=== PATIENT | male | born 1960 | race Caucasian/White ===

== ENCOUNTER 2016-08-15 09:41 | Outpatient (CLI) | payer OTHER ==
--- NOTE | 2016-08-15 21:33 | RAD ---
LUMBAR SPINE THREE VIEWS 08/15/16 No acute fracture was seen, however, there does appear to be an old injury to the anterior superior corner of the L3 vertebral body. The disc spaces are normal in height. The visible lower thoracic ve rtebrae appeared intact. The SI joints appear normal. A spina bifida occulta defect of S1 was noted. The aorta and iliac arteries are calcified. IMPRESSION: Old L3 injury. No acute findings. Given the clinical symptoms, MRI could be helpful in looking for n eural impingement from discs. POS: HOME
== END 2016-08-15 09:42 | disposition home or self-care (01) ==
LOC: BURRAD 09:41
PROVIDERS: ATTEND Family Medicine
DX: M54.30 Sciatica, unspecified side (principal)
CPT/HCPCS: 72100

== ENCOUNTER 2016-09-07 13:31 | Outpatient (CLI) | payer OTHER ==
--- NOTE | 2016-09-07 16:37 | MRI ---
MRI LUMBAR SPINE WITHOUT CONTRAST: Multiplanar, multisequential imaging of the lumbar spine obtained according to protocol. HISTORY: Low back pain. Sciatica. FINDINGS: Lumbar vertebrae maintain height and alignment. There is a corticated osseous fragment adjacent to the anterior superior corner of the L3 vertebrae consistent with a limbus vertebra. There is a superior end plate deformity involving the superior e nd plate of L5 consistent with a Schmorl node. Mild degenerative spurring from all lumbar vertebrae . The disk spaces are preserved. There are mild degenerative disk signal changes throughout. No d isk bulge or protrusion seen at T12-L1, L1-2, or L2-3 levels. Mild facet arthrosis; however, no kristan tral canal or foraminal stenosis. At L3-4, there is significant disk bulge and protrusion. Moderate facet and ligamentous arthrosis a nd hypertrophy; however, no significant central canal or foraminal stenosis. At L4-5, mild diffuse disk bulge flattens the anterior thecal sac. Mild to moderate facet hypertrop hy. Very mild central canal stenosis. There is mild foraminal encroachment bilaterally due to the disk bulge and hypertrophic change. There is asymmetric enlargement of the exiting right L4 nerve root within the foramina. This is kevin ecially noticeable on the sagittal images as this nerve root takes up the entire foramina. The T1 a nd T2 signal is isointense. At L5-S1, there is evidence of a small annular tear with asymmetric bulge paracentrally to the right . No protrusion is seen. No central canal or foraminal stenosis. IMPRESSION: 1. At L4-5, there is asymmetrically enlarged L4 nerve root on the right as it exits the foramina. Since the nerve sheath tumor cannot be excluded from this exam, recommend a contrasted study to furt her evaluate this nerve root. This may be an enlargement due to focal inflammation from impingement ; however, a postcontrast scan is recommended for further evaluation. 2. Mild central canal stenosis at L4-5 as described above. 3. Small annular tear with mild asymmetric bulge to the right at L5-S1. 4. Limbus vertebra at L3. Schmorl node involving superior end plate of L5. POS: [facility]
== END 2016-09-07 13:32 | disposition home or self-care (01) ==
LOC: BURMRI 13:31
PROVIDERS: ATTEND Family Medicine
DX: M54.40 Lumbago with sciatica, unspecified side (principal); M48.06 Spinal stenosis, lumbar region
CPT/HCPCS: 72148

== ENCOUNTER 2016-10-17 07:37 | Emergency (ER) | payer OTHER ==
[2016-10-17] MEDS ORDERED: Ketorolac Tromethamine 30 MG/ML VIAL ONE (07:53)
[2016-10-17] MEDS ORDERED: Ondansetron HCl/PF 4 MG/2 ML Vial ONE (07:53)
[2016-10-17 08:05] LABS: #Basophils 0.1 thou/uL (0.0-0.2); #Eosinphils 0.1 thou/uL (0.0-0.7); #Lymphocytes 2.4 thou/uL (1.20-3.40); #Monocytes 1.2 thou/uL (0.11-0.59); #Neutrophils 9.2 thou/uL (1.40-6.50); %Basophils 0.6 % (0.0-1.0); %Eosinophils 0.7 % (0.0-10.0); %Monocytes 9.1 % (0.0-10.0); Hematocrit 52.9 % (42.0-52.0); Mean Platelet Volume 7.3 fL (7.4-10.4); Red Blood Cell (RBC) Count 5.68 mill/uL (4.70-6.10)
[2016-10-17 08:14] LABS: Bilirubin Negative (Negative); Blood, Urine Moderate (Negative); Glucose, Urine (Dipstick) Negative (Negative); Ketone, Urine Negative (Negative); Nitrite Negative (Negative); Protein, Urine (Dipstick) 100 mg/dL (Neg-Trace); Urobilinogen 0.2 mg/dL (0.2-1.0)
[2016-10-17 08:18] LABS: Bacteria/HPF Rare-Few HPF (None Seen); RBC/HPF GREATER THAN 50-TNTC HPF (0-3); Squamous Epithelial 0-3 HPF (0-3); WBC/HPF 0-3 HPF (0-3)
[2016-10-17 08:19] LABS: ALT (SGPT) 24 U/L (0-55); AST (SGOT) 14 U/L (5-34); Alkaline Phosphatase 111 U/L (40-150); Anion Gap 18 mmol/L (10-20); BUN (Urea Nitrogen) 20 mg/dL (8.4-25.7); Bilirubin, Total 0.9 mg/dL (0.2-1.2); Calc. Creatinine Clearance 0 mL/min (70-130); Calcium 10.2 mg/dL (7.8-10.44); Carbon Dioxide 23 mmol/L (22-29); Chloride 101 mmol/L (98-107); Estimated GFR-MDRD 65; Globulin 3.4 g/dL (2.4-3.5)
--- NOTE | 2016-10-17 16:49 | CT ---
CT OF THE ABDOMEN AND PELVIS WITHOUT CONTRAST: Date: 10-17-[address] was done for severe right flank pain. Axial slices were acquired and then coronal reconstructions were done. FINDINGS: A large 9 x 5 mm distal right ureteral calculus is seen just above the right UVJ. It is causing mod erate right hydronephrosis. Additionally, there is a 5 mm distal left ureteral calculus near the le ft UVJ, but it is causing minimal obstruction. Small bilateral renal calculi are seen. There is a vague lucency in the lower pole of the right kidney that could be a cyst, but an ultrasound would be needed to be certain. The lung bases are clear. The liver, spleen, pancreas, adrenal glands and abdominal aorta showed no acute findings within the limitations of a noncontrast study. No calcifications were seen in the g allbladder, but an ultrasound would be needed to completely clear stones. There is a large calcific ation seen in small bowel of uncertain etiology, but it is probably not significant. There is no bowel dilatation, inflammatory change around bowel, free air or free fluid. No bowel wa ll thickening was seen. CT of the pelvis shows no pelvic masses, fluid collections, or inflammatory changes. IMPRESSION: 1. 9 x 5 mm distal right ureteral calculus causing moderate right hydronephrosis. 2. 5 mm distal left ureteral calculus near the UVJ with minimal obstruction. 3. Bilateral nonobstructing renal calculi. POS: HOME
== END 2016-10-17 09:11 | disposition home or self-care (01) ==
LOC: BURERS 07:37
DX: N13.2 Hydronephrosis with renal and ureteral calculous obstruction (principal); G43.909 Migraine, unspecified, not intractable, without status migrainosus; E11.9 Type 2 diabetes mellitus without complications; E78.5 Hyperlipidemia, unspecified; E78.00 Pure hypercholesterolemia, unspecified; I10 Essential (primary) hypertension; F17.210 Nicotine dependence, cigarettes, uncomplicated
CPT/HCPCS: 36415; 74176; 80053; 81003; 81015; 85025; 87086; 96361; 96374; 96375; 96376; J1885; J2270; J2405

== ENCOUNTER 2017-03-16 17:56 | Emergency (ER) | payer OTHER, SELFPAY ==
[2017-03-16] MEDS ORDERED: Ketorolac Tromethamine 30 MG/ML VIAL ONE (18:00)
[2017-03-16] MEDS ORDERED: Fentanyl 100 MCG/2 ML VIAL ONE ×2 (18:04→18:39)
[2017-03-16 18:54] LABS: #Basophils 0.1 thou/uL (0.0-0.2); #Eosinphils 0.1 thou/uL (0.0-0.7); #Lymphocytes 2.2 thou/uL (1.20-3.40); #Monocytes 0.9 thou/uL (0.11-0.59); #Neutrophils 8.1 thou/uL (1.40-6.50); %Basophils 0.9 % (0.0-1.0); %Eosinophils 1.1 % (0.0-10.0); %Lymphocytes 18.9 % (21.0-51.0); %Monocytes 8.2 % (0.0-10.0); Hemoglobin 16.4 g/dL (14.0-18.0); Mean Corpuscular HGB CONC 33.8 g/dL (32.0-36.0); Mean Corpuscular Hemoglobin 31.2 pg (27.0-31.0); Mean Corpuscular Volume 92.3 fl (80.0-94.0); Mean Platelet Volume 7.8 fL (7.4-10.4); Platelet Count 227 thou/uL (130-400); RBC Distribution Width 12.6 % (11.5-14.5); Red Blood Cell (RBC) Count 5.27 mill/uL (4.70-6.10); White Blood Cell (WBC) Count 11.4 thou/uL (4.8-10.8)
[2017-03-16 19:01] LABS: Blood, Urine Large (Negative); Clarity Cloudy (Clear); Glucose, Urine (Dipstick) Negative (Negative); Leukocyte Negative (Negative); Nitrite Negative (Negative); Protein, Urine (Dipstick) 100 mg/dL (Neg-Trace); Urobilinogen 0.2 mg/dL (0.2-1.0); pH, Urine 5.5 (5.0-9.0)
[2017-03-16 19:02] LABS: Specific Gravity, Urine 1.024 (1.002-1.036)
[2017-03-16 19:03] LABS: Bilirubin Negative (Negative)
[2017-03-16 19:06] LABS: ALT (SGPT) 31 U/L (8-55); AST (SGOT) 13 U/L (5-34); Albumin 4.2 g/dL (3.5-5.0); Alkaline Phosphatase 85 U/L (40-150); Anion Gap 16 mmol/L (10-20); BUN (Urea Nitrogen) 21 mg/dL (8.4-25.7); Bilirubin, Total 0.3 mg/dL (0.2-1.2); Calc. Creatinine Clearance 0 mL/min (70-130); Calcium 9.7 mg/dL (7.8-10.44); Carbon Dioxide 22 mmol/L (22-29); Chloride 104 mmol/L (98-107); Estimated GFR-MDRD 76; Globulin 2.8 g/dL (2.4-3.5); Glucose 96 mg/dL (70-105); Potassium 3.5 mmol/L (3.5-5.1); Sodium 138 mmol/L (136-145)
[2017-03-16 19:14] LABS: Bacteria/HPF 1+ HPF (None Seen); Crystals/HPF 1+ CA OXALATE HPF (Negative); Hyaline Casts/LPF 0-3 HYALINE CAST LPF (0-3 Hyaline); Other Microscopic Description 1+ MUCUS; RBC/HPF GREATER THAN 50-TNTC HPF (0-3); Squamous Epithelial 0-3 HPF (0-3); WBC/HPF 0-3 HPF (0-3); Yeast-All Forms 1+ HPF (None Seen)
--- NOTE | 2017-03-16 20:58 | CT ---
CT ABDOMEN AND PELVIS WITHOUT CONTRAST 03/16/[address] of the abdomen and pelvis was performed without IV contrast for evaluation of flank pain. There is a history of renal calculi. A calculus is present in the right ureter at the S1 level that is causing mild to moderate right hyd ronephrosis and hydroureter. Nonobstructing stones are seen in each kidney, very tiny on the right b ut somewhat larger on the left. The largest one is in the lower pole of the left kidney and measures 8 to 9 mm in size. There is a subtle 1 cm lucency in the lower pole of the right kidney. This is mo st likely a small cyst. Ultrasound would be confirmatory. A look at an MRI of the lumbar spine done earlier this year and an see the lesion and its general signal characteristics follow what one might expect for a cyst. It would still be prudent to do an elective ultrasound at some point for complet e confirmation. The lung bases are clear. The liver, spleen, pancreas, gallbladder, adrenal glands, and abdominal ao rta showed no acute changes. There is some calcification in the aorta and iliac arteries. The bowel is nondistended and shows no inflammatory changes around it. No bowel wall thickening was seen. No free air or free fluid was evident. CT of the pelvis shows no pelvic masses, inflammatory changes or free fluid. IMPRESSION: 1. 4 to 5 mm distal right ureteral calculus at the S1 level causing moderate right hydroureter and hydronephrosis. 2. Nonobstructing bilateral renal calculi. The largest is in the left kidney. 3. Probable 1 cm cyst in the lower pole of the left kidney. Elective ultrasound recommended for confirmation. POS: HOME
== END 2017-03-16 19:46 | disposition home or self-care (01) ==
LOC: BURERS 17:56
DX: N13.2 Hydronephrosis with renal and ureteral calculous obstruction (principal); E11.9 Type 2 diabetes mellitus without complications; E78.5 Hyperlipidemia, unspecified; I10 Essential (primary) hypertension; F17.210 Nicotine dependence, cigarettes, uncomplicated; Z87.442 Personal history of urinary calculi; Z79.899 Other long term (current) drug therapy
CPT/HCPCS: 74176; 80053; 81003; 81015; 85025; 87086; 96374; 96375; 96376; J1885; J3010

== ENCOUNTER 2017-05-18 23:55 | Emergency (ER) | payer OTHER ==
[2017-05-19] MEDS ORDERED: Amoxicillin/Potassium Clav 875 MG TAB ONE (00:04)
== END 2017-05-19 00:14 | disposition home or self-care (01) ==
LOC: BURERS 23:55
DX: S61.551A Open bite of right wrist, initial encounter (principal); S61.451A Open bite of right hand, initial encounter; E11.9 Type 2 diabetes mellitus without complications; E78.5 Hyperlipidemia, unspecified; I10 Essential (primary) hypertension; G43.909 Migraine, unspecified, not intractable, without status migrainosus; F17.210 Nicotine dependence, cigarettes, uncomplicated; W54.0XXA Bitten by dog, initial encounter
CPT/HCPCS: 99283

== ENCOUNTER 2017-08-17 10:30 | Emergency (ER) | payer OTHER ==
[2017-08-17] MEDS ORDERED: Acetaminophen 500 MG TAB ONE (10:41)
[2017-08-17 11:08] LABS: #Basophils 0.2 thou/uL (0.0-0.2); #Lymphocytes 1.2 thou/uL (1.20-3.40); #Monocytes 1.4 thou/uL (0.11-0.59); #Neutrophils 8.3 thou/uL (1.40-6.50); %Basophils 1.7 % (0.0-1.0); %Eosinophils 0.1 % (0.0-10.0); %Lymphocytes 10.7 % (21.0-51.0); %Monocytes 12.4 % (0.0-10.0); %Neutrophils 75.1 % (42.0-75.0); Hemoglobin 15.8 g/dL (14.0-18.0); Mean Corpuscular Hemoglobin 31.5 pg (27.0-31.0); Mean Platelet Volume 7.5 fL (7.4-10.4); Platelet Count 190 thou/uL (130-400); RBC Distribution Width 12.1 % (11.5-14.5)
[2017-08-17 11:09] LABS: ALT (SGPT) 28 U/L (8-55); AST (SGOT) 13 U/L (5-34); Albumin 4.1 g/dL (3.5-5.0); Alkaline Phosphatase 94 U/L (40-150); Anion Gap 16 mmol/L (10-20); BUN (Urea Nitrogen) 18 mg/dL (8.4-25.7); Bilirubin, Total 0.4 mg/dL (0.2-1.2); Calc. Creatinine Clearance 0 mL/min (70-130); Calcium 9.2 mg/dL (7.8-10.44); Carbon Dioxide 24 mmol/L (22-29); Chloride 98 mmol/L (98-107); Estimated GFR-MDRD 72; Globulin 3.1 g/dL (2.4-3.5); Glucose 114 mg/dL (70-105); Potassium 3.3 mmol/L (3.5-5.1); Protein, Total 7.2 g/dL (6.0-8.3); Sodium 135 mmol/L (136-145)
[2017-08-17] MEDS ORDERED: Benzonatate 100 MG CAP ONE (11:37)
[2017-08-17] MEDS ORDERED: Ketorolac Tromethamine 30 MG/ML VIAL ONE (11:37)
[2017-08-17] MEDS ORDERED: Azithromycin 250 MG TAB ONE (12:32)
--- NOTE | 2017-08-17 21:17 | RAD ---
CHEST TWO VIEWS 08/17/17 Comparison is made with the 01/11/10 study. There is no lobar consolidation, or effusion. There is a little increased streaking to the retrocardi ac markings, probably on the left. There might be a very minimal infiltrate here, but this is a reyna nal finding at best. The lungs are otherwise clear. the cardiac silhouette appears normal. Some calci fied nodes are seen in the dia. There is no congestive change. The trachea is midline. IMPRESSION: Equivocal left basilar retrocardiac streaking. POS: HOME
== END 2017-08-17 12:41 | disposition home or self-care (01) ==
LOC: BURERS 10:30
DX: J11.1 Influenza due to unidentified influenza virus with other respiratory manifestations (principal); E11.9 Type 2 diabetes mellitus without complications; E78.5 Hyperlipidemia, unspecified; G43.909 Migraine, unspecified, not intractable, without status migrainosus; I10 Essential (primary) hypertension; F17.210 Nicotine dependence, cigarettes, uncomplicated; Z79.899 Other long term (current) drug therapy; Z79.84 Long term (current) use of oral hypoglycemic drugs
CPT/HCPCS: 71046; 80053; 85025; 87040; 94640; 96361; 96374; J1885; J7620

== ENCOUNTER 2018-11-24 12:20 | Emergency (ER) | payer OTHER ==
[2018-11-24] MEDS ORDERED: Ketorolac Tromethamine 60 MG/2 ML VIAL ONE (12:45)
== END 2018-11-24 12:55 | disposition home or self-care (01) ==
LOC: BURERS 12:20
DX: M62.838 Other muscle spasm (principal); E11.9 Type 2 diabetes mellitus without complications; E78.5 Hyperlipidemia, unspecified; I10 Essential (primary) hypertension; F17.210 Nicotine dependence, cigarettes, uncomplicated; Z79.899 Other long term (current) drug therapy; Z79.84 Long term (current) use of oral hypoglycemic drugs
CPT/HCPCS: 99283; J1885

== ENCOUNTER 2018-11-25 09:24 | Outpatient (CLI) | payer OTHER ==
--- NOTE | 2018-11-25 21:07 | RAD ---
RIGHT HIP TWO VIEWS: Date: 11-25-18 FINDINGS: No fracture, arthritic change, or joint space narrowing was seen. The articular surfaces are smooth. The adjacent pubic ring appears normal. IMPRESSION: No significant findings. POS: HOME
== END 2018-11-25 09:25 | disposition home or self-care (01) ==
LOC: BURRAD 09:24
PROVIDERS: ATTEND Physician Assistant
DX: M25.551 Pain in right hip (principal)

== ENCOUNTER 2021-06-05 03:36 | Emergency (ER) | payer BC ==
[2021-06-05 04:27] LABS: #Basophils 0.1 thou/uL (0.0-0.2); #Eosinphils 0.1 thou/uL (0.0-0.7); #Lymphocytes 1.6 thou/uL (1.20-3.40); #Monocytes 0.9 thou/uL (0.11-0.59); #Neutrophils 8.6 thou/uL (1.40-6.50); %Basophils 0.5 % (0.0-1.0); %Eosinophils 0.9 % (0.0-10.0); %Lymphocytes 14.3 % (21.0-51.0); %Monocytes 7.9 % (0.0-10.0); %Neutrophils 76.4 % (42.0-75.0); Hemoglobin 16.5 g/dL (14.0-18.0); Mean Corpuscular HGB CONC 35.6 g/dL (32.0-36.0); Mean Corpuscular Hemoglobin 32.5 pg (27.0-31.0); Mean Corpuscular Volume 91.3 fL (78.0-98.0); Mean Platelet Volume 8.6 fL (7.4-10.4); Platelet Count 217 thou/uL (130-400); RBC Distribution Width 12.4 % (11.5-14.5); Red Blood Cell (RBC) Count 5.07 mill/uL (4.70-6.10); White Blood Cell (WBC) Count 11.3 thou/uL (4.8-10.8)
[2021-06-05 04:31] LABS: PTT 24.9 sec (22.9-36.1)
[2021-06-05] MEDS ORDERED: Aspirin Chewable 81 MG TAB ONE (04:31)
[2021-06-05 04:33] LABS: INR-International Normal Ratio 0.9; Prothrombin Time 12.1 sec (12.0-14.7)
[2021-06-05 04:40] LABS: ALT (SGPT) 29 U/L (8-55); AST (SGOT) 15 U/L (5-34); Albumin 4.2 g/dL (3.4-4.8); Alkaline Phosphatase 77 U/L (40-110); Anion Gap 15 mmol/L (10-20); BUN (Urea Nitrogen) 19 mg/dL (8.4-25.7); Bilirubin, Total 0.5 mg/dL (0.2-1.2); Calc. Creatinine Clearance 0 mL/min (70-130); Calcium 9.5 mg/dL (7.8-10.44); Carbon Dioxide 25 mmol/L (23-31); Chloride 102 mmol/L (98-107); Globulin 2.2 g/dL (2.4-3.5); Glucose 227 mg/dL (80-115); Potassium 3.6 mmol/L (3.5-5.1); Protein, Total 6.4 g/dL (5.8-8.1); Sodium 138 mmol/L (136-145)
[2021-06-05] MEDS ORDERED: Iopamidol 370 76% 100 ML VIAL ONE (12:56)
== END 2021-06-05 05:05 | disposition short-term general hospital (02) ==
LOC: BURERS 03:36
DX: I63.9 Cerebral infarction, unspecified (principal); E11.9 Type 2 diabetes mellitus without complications; E78.5 Hyperlipidemia, unspecified; I10 Essential (primary) hypertension; F17.210 Nicotine dependence, cigarettes, uncomplicated; Z79.899 Other long term (current) drug therapy
CPT/HCPCS: 36416; 70450; 70496; 70498; 80053; 85025; 85610; 85730; 93005; Q9967

== ENCOUNTER 2021-08-01 00:17 | Emergency (ER) | payer BC, OTHER ==
[2021-08-01] MEDS ORDERED: Ciprofloxacin 500 MG TAB ONE (00:41)
[2021-08-01] MEDS ORDERED: Acetaminophen 500 MG TAB ONE (00:41)
== END 2021-08-01 00:50 | disposition home or self-care (01) ==
LOC: BURERS 00:17
DX: H60.502 Unspecified acute noninfective otitis externa, left ear (principal); I10 Essential (primary) hypertension; E78.5 Hyperlipidemia, unspecified; E78.00 Pure hypercholesterolemia, unspecified; E11.9 Type 2 diabetes mellitus without complications; Z86.73 Personal history of transient ischemic attack (TIA), and cerebral infarction without residual deficits; F17.210 Nicotine dependence, cigarettes, uncomplicated; Z79.84 Long term (current) use of oral hypoglycemic drugs; Z79.4 Long term (current) use of insulin
CPT/HCPCS: 99282